=== PATIENT | female | born 1950 | race Caucasian/White ===

== ENCOUNTER → 2018-10-31 | Outpatient (CLI) | payer MEDICARE ==
[~2018-10-31] MED LIST: ACET325T14 PO; ATOR20TA37 PO; CAFF200T38 PO; CHOL100012 PO; INSU100C5 SQ-INSULIN; INSU100V8 SQ; LEVO137T2 PO; LISI-170 PO; METO-93 PO
== END | disposition home or self-care (01) ==
LOC: CFH 12:03
PROVIDERS: ATTEND Family Medicine
DX: Z12.31 Encounter for screening mammogram for malignant neoplasm of breast (principal)
CPT/HCPCS: 77067

== ENCOUNTER 2019-02-20 10:27 | Outpatient (CLI) | payer MEDICARE ==
[~2019-02-20 10:27] MED LIST changes: -CAFF200T38 PO; +CAFF200T68 PO
== END 2019-02-20 23:59 | disposition home or self-care (01) ==
LOC: CFH 10:27
PROVIDERS: ATTEND Internal Medicine Hematology & Oncology
DX: M85.88 Other specified disorders of bone density and structure, other site (principal); Z17.0 Estrogen receptor positive status [ER+]
CPT/HCPCS: 77080